=== PATIENT | male | born 1945 | race Caucasian/White ===

== ENCOUNTER → 2016-10-14 | Outpatient (CLI) | payer MEDICARE, BC ==
[~2016-10-14] MED LIST: ALLO300T2 PO; ASPI81TA7 PO; BISAC5TA PO; BISO5TAB5 PO; CLOP75TA2 PO; DOCU10ELUD PO; EPOETIN ALFA IV; FAMC250T3 PO; LOVA20TA2 PO; METF1000 PO; METO12TA PO; METO25TA2 PO; RITU10VLL IV; TYLE325T5 PO; VITA100037 PO; VITA250L PO; VITAD1000T PO; [UNRECOGNIZED DRUG - CODE] IV; [UNRECOGNIZED DRUG - OTHER]
[2016-10-14 13:58] LABS: MEAN CORPUSCULAR HEMOGLOBIN 32.1 pg (27.0-33.0); MEAN CORPUSCULAR HGB CONC 34.6 g/dl (32.0-36.5); MEAN CORPUSCULAR VOLUME 92.7 fl (80.0-96.0); RED CELL DISTRIBUTION WIDTH 14.2 % (11.5-14.5); WHITE BLOOD COUNT 5.4 K/mm3 (4.0-10.0)
[2016-10-14 14:18] LABS: ALBUMIN 3.6 GM/DL (3.2-5.2); ALBUMIN/GLOBULIN RATIO 1.64 (1.00-1.93); BILIRUBIN,TOTAL 0.5 MG/DL (0.2-1.0); CALCIUM LEVEL 8.7 MG/DL (8.8-10.2); CREATININE FOR GFR 1.29 MG/DL (0.70-1.30); GLOMERULAR FILTRATION RATE 58.8 (>49); POTASSIUM SERUM 4.3 MEQ/L (3.5-5.1); TOTAL PROTEIN 5.8 GM/DL (6.4-8.2)
== END ==
LOC: M LAB 13:05
PROVIDERS: ATTEND Family Medicine
DX: E11.9 Type 2 diabetes mellitus without complications (principal); Z12.5 Encounter for screening for malignant neoplasm of prostate; C83.88 Other non-follicular lymphoma, lymph nodes of multiple sites
CPT/HCPCS: 36415; 80053; 83036; 85027; G0103

== ENCOUNTER → 2016-10-17 | Outpatient (REF) | payer MEDICARE, BC | LOC: M SFHCPLAZ 17:30 | PROVIDERS: ATTEND Dermatology | DX: C44.311 Basal cell carcinoma of skin of nose (principal); D04.39 Carcinoma in situ of skin of other parts of face; D04.5 Carcinoma in situ of skin of trunk ==

== ENCOUNTER → 2017-11-10 | Outpatient (REF) | payer MEDICARE, BC | LOC: M SFHCLERA 11-11 11:20 | DX: D04.9 Carcinoma in situ of skin, unspecified (principal) | CPT/HCPCS: 88305 ==

== ENCOUNTER → 2017-12-25 | Outpatient (REF) | payer MEDICARE, BC ==
[2017-12-25 12:20] LABS: HEMATOCRIT 39.4 % (42.0-52.0); HEMOGLOBIN 13.9 g/dl (13.5-17.5); MEAN CORPUSCULAR HEMOGLOBIN 31.4 pg (27.0-33.0); MEAN CORPUSCULAR HGB CONC 35.3 g/dl (32.0-36.5); MEAN CORPUSCULAR VOLUME 89.1 fl (80.0-96.0); PLATELET COUNT, AUTOMATED 102 10^3/uL (150-450); RED BLOOD COUNT 4.42 10^6/uL (4.30-6.10); RED CELL DISTRIBUTION WIDTH 13.2 % (11.5-14.5); WHITE BLOOD COUNT 7.6 10^3/uL (4.0-10.0)
[2017-12-25 12:34] LABS: ALBUMIN 3.7 GM/DL (3.2-5.2); ALBUMIN/GLOBULIN RATIO 1.54 (1.00-1.93); ALKALINE PHOSPHATASE 127 U/L (45-117); ALT/SGPT 25 U/L (12-78); ANION GAP 8 MEQ/L (8-16); AST/SGOT 16 U/L (7-37); BILIRUBIN,TOTAL 0.9 MG/DL (0.2-1.0); BLOOD UREA NITROGEN 19 MG/DL (7-18); CALCIUM LEVEL 8.7 MG/DL (8.8-10.2); CARBON DIOXIDE LEVEL 27 MEQ/L (21-32); CHLORIDE LEVEL 107 MEQ/L (98-107); CHOLESTEROL LEVEL 125 MG/DL (<200); CHOLESTEROL RISK RATIO 3.676 (<5); CREATININE FOR GFR 1.46 MG/DL (0.70-1.30); GLOMERULAR FILTRATION RATE 50.8 (>42); GLUCOSE, FASTING 232 MG/DL (70-100); HDL CHOLESTEROL 34 MG/DL (>40); LDL CHOLESTEROL 43.2 MG/DL (<100); NON-HDL-C 91 MG/DL; PROSTATIC SPECIFIC AG MONITOR 9.88 NG/ML (< 4.0); SODIUM LEVEL 142 MEQ/L (136-145); TOTAL PROTEIN 6.1 GM/DL (6.4-8.2); TRIGLYCERIDES LEVEL 239 MG/DL (<150); URIC ACID 3.8 MG/DL (3.5-7.2)
[2017-12-25 12:50] LABS: MALB URINE SIEMENS 18.3 MG/L; MAU/CREAT RATIO 9.5 MCG/MG (0.0-30.0)
[2017-12-25 13:03] LABS: ESTIMATED AVERAGE GLUCOSE 214 MG/DL (60-110); HEMOGLOBIN A1c 9.1 %
== END ==
LOC: M SFHCADAM 09:17
DX: C83.88 Other non-follicular lymphoma, lymph nodes of multiple sites (principal); E11.9 Type 2 diabetes mellitus without complications; I25.10 Atherosclerotic heart disease of native coronary artery without angina pectoris; E78.4 Other hyperlipidemia; M10.9 Gout, unspecified; R97.20 Elevated prostate specific antigen [PSA]
CPT/HCPCS: 84550

== ENCOUNTER → 2018-01-01 | Outpatient (REF) | payer MEDICARE, BC ==
[2018-01-01 14:48] LABS: IMMUNOGLOBULIN G 409 MG/DL (681-1648); IMMUNOGLOBULIN M 47.8 MG/DL (40-230)
[2018-01-02 14:57] LABS: BETA 2 MICROGLOBULIN 4.6 mg/L (0.6-2.4)
== END ==
LOC: M LAB REF 13:23
DX: C85.99 Non-Hodgkin lymphoma, unspecified, extranodal and solid organ sites (principal)
CPT/HCPCS: 82784

== ENCOUNTER → 2018-01-20 | Outpatient (CLI) | payer MEDICARE, BC | LOC: M PLARAD 12:30 | DX: C85.99 Non-Hodgkin lymphoma, unspecified, extranodal and solid organ sites (principal); Z85.820 Personal history of malignant melanoma of skin | CPT/HCPCS: 78815 ==

== ENCOUNTER → 2018-01-22 | Outpatient (REF) | payer MEDICARE, BC | LOC: M LAB REF 19:39 | DX: C83.00 Small cell B-cell lymphoma, unspecified site (principal) | CPT/HCPCS: 88300 ==

== ENCOUNTER → 2018-10-14 | Outpatient (CLI) | payer MEDICARE, BC ==
[~2018-10-14] MED LIST changes: +ASPI81TA85 PO; -DOCU10ELUD PO; +DOCU5LIQ PO; +METO-346 PO; -METO12TA PO; +METO1TAB87 PO; +OMEP20TA PO
[2018-10-14 10:53] LABS: HEMATOCRIT 40.2 % (42.0-52.0); HEMOGLOBIN 14.1 g/dl (13.5-17.5); MEAN CORPUSCULAR HEMOGLOBIN 32.5 pg (27.0-33.0); MEAN CORPUSCULAR HGB CONC 35.1 g/dl (32.0-36.5); MEAN CORPUSCULAR VOLUME 92.6 fl (80.0-96.0); PLATELET COUNT, AUTOMATED 114 10^3/uL (150-450); RED BLOOD COUNT 4.34 10^6/uL (4.30-6.10); WHITE BLOOD COUNT 9.2 10^3/uL (4.0-10.0)
[2018-10-14 11:22] LABS: ALBUMIN 4.1 GM/DL (3.2-5.2); BILIRUBIN,TOTAL 0.5 MG/DL (0.2-1.0); CALCIUM LEVEL 8.5 MG/DL (8.8-10.2); CHOLESTEROL RISK RATIO 3.81 (<5); CREATININE FOR GFR 1.53 MG/DL (0.70-1.30); FREE T4 1.02 NG/DL (0.76-1.46); MALB URINE SIEMENS 54.4 MG/L; MAU/CREAT RATIO 29.5 MCG/MG (0.0-30.0); POTASSIUM SERUM 4.4 MEQ/L (3.5-5.1); PROSTATIC SPECIFIC AG MONITOR 12.9 NG/ML (< 4.00); THYROID STIMULATING HORMONE 6.07 uIU/ML (0.358-3.740); TOTAL PROTEIN 6.3 GM/DL (6.4-8.2); URIC ACID 4.1 MG/DL (3.5-7.2)
[2018-10-14 11:23] LABS: TOTAL 25(OH) VITAMIN D 54.7 NG/ML (30.0-100.0)
[2018-10-14 11:24] LABS: HEMOGLOBIN A1c 6.6 %
[2018-10-14 11:33] LABS: FOLATE 12.5 NG/ML (>5.4)
== END ==
LOC: M LAB 10:23
PROVIDERS: ATTEND Family Medicine
DX: E11.9 Type 2 diabetes mellitus without complications (principal); M10.9 Gout, unspecified; R53.83 Other fatigue; R97.20 Elevated prostate specific antigen [PSA]

== ENCOUNTER → 2018-11-05 | Outpatient (REF) | payer MEDICARE, BC ==
[~2018-11-05] MED LIST changes: +B-12100010 PO; +METF-877 PO; +ZYLO300T6 PO
[2018-11-05 13:48] LABS: APPEARANCE, URINE CLEAR (CLEAR); BACTERIA, URINE AUTO NEGATIVE (NEGATIVE); BILIRUBIN, URINE AUTO NEGATIVE (NEGATIVE); BLOOD, URINE BLOOD NEGATIVE (NEGATIVE); COLOR, URINE YELLOW (YELLOW); GLUCOSE, URINE (UA) AUTO NEGATIVE (NEGATIVE); KETONE, URINE AUTO NEGATIVE (NEGATIVE); LEUKOCYTE ESTERASE, URINE AUTO NEGATIVE (NEGATIVE); NITRITE, URINE AUTO NEGATIVE (NEGATIVE); PROTEIN, URINE AUTO NEGATIVE (NEGATIVE); RBC, URINE AUTO 3 /HPF (0-3); SPECIFIC GRAVITY URINE AUTO 1.018 (1.002-1.035); SQUAMOUS EPITHELIAL CELL UR AU 0 /HPF (0-6); UROBILINOGEN, URINE AUTO 0.2 mg/dL (0.0-2.0); WBC, URINE AUTO 2 /HPF (0-3)
== END ==
LOC: M SMT 13:04
PROVIDERS: ATTEND Nurse Practitioner Women's Health
DX: R97.20 Elevated prostate specific antigen [PSA] (principal)
CPT/HCPCS: 81001; 87086; G0463

== ENCOUNTER → 2018-11-06 | Outpatient (CLI) | payer MEDICARE, BC ==
--- NOTE | 2018-11-06 08:36 | REP ---
Clinical: Splenomegaly. Technique: Real time michele scale ultrasound examination using curved array transducer. Findings: The spleen is enlarged and measures 14.1 x 7.0 x 13.2 cm (splenic index 1303). A 2.0 x 2.2 x 2.4 cm adjacent splenule is also appreciated. No focal splenic lesions are identified. The left kidney is normal in reniform shape without hydronephrosis and measures 11.3 x 4.4 x 4.8 cm. Suggestions for duplicated collecting system cannot be excluded. Impression: Splenomegaly and adjacent splenule. No focal splenic lesion identified. Electronically Signed by Ga Guillory MD 11/06/2018 08:28 A
== END ==
LOC: M RAD 06:46
PROVIDERS: ATTEND Internal Medicine Medical Oncology
DX: R16.1 Splenomegaly, not elsewhere classified (principal)

== ENCOUNTER → 2018-12-15 | Outpatient (CLI) | payer MEDICARE, BC ==
--- NOTE | 2018-12-15 14:31 | REP ---
TRANSRECTAL PROSTATE ULTRASOUND WITH ULTRASOUND GUIDANCE FOR PROSTATE BIOPSY: Real-time sonographic evaluation of prostate performed utilizing transrectal probe. Size of the gland is 5.0 x 3.1 x 5.4 cm for a total volume of 44.0 mL. Scattered cysts and calcifications are seen. Hypoechoic nodule in the right apex measures 11 x 7 mm. Seminal vesicles appear prominent. Ultrasound guidance was provided for Dr. Eduardo who performed ultrasound guided biopsy of the prostate. Electronically Signed by Huber Lewis MD 12/16/2018 10:38 A
== END ==
LOC: M SMT PRO 08:48
PROVIDERS: ATTEND Urology
DX: C61 Malignant neoplasm of prostate (principal)
CPT/HCPCS: 55700; 76872; 76942; G0416

== ENCOUNTER → 2019-01-14 | Outpatient (CLI) | payer MEDICARE, BC ==
[2019-01-14 10:25] LABS: CALCIUM LEVEL 8.7 MG/DL (8.8-10.2); CREATININE FOR GFR 1.56 MG/DL (0.70-1.30); GLOMERULAR FILTRATION RATE 46.9 (>42)
== END ==
LOC: M LAB 09:27
PROVIDERS: ATTEND Family Medicine
DX: E11.9 Type 2 diabetes mellitus without complications (principal)

== ENCOUNTER → 2019-11-01 | Outpatient (CLI) | payer MEDICARE, BC ==
[~2019-11-01] MED LIST changes: +OMEP-358 PO; -OMEP20TA PO
[2019-11-01 09:33] LABS: HEMATOCRIT 38.9 % (42.0-52.0); HEMOGLOBIN 12.9 g/dl (13.5-17.5); MEAN CORPUSCULAR HEMOGLOBIN 30.7 pg (27.0-33.0); MEAN CORPUSCULAR HGB CONC 33.2 g/dl (32.0-36.5); MEAN CORPUSCULAR VOLUME 92.6 fl (80.0-96.0); PLATELET COUNT, AUTOMATED 127 10^3/uL (150-450)
[2019-11-01 09:36] LABS: WHITE BLOOD COUNT 59.4 10^3/uL (4.0-10.0)
[2019-11-01 10:26] LABS: ALBUMIN 4.3 GM/DL (3.2-5.2); BILIRUBIN,TOTAL 0.8 MG/DL (0.2-1.0); CALCIUM LEVEL 9.6 MG/DL (8.8-10.2); CHOLESTEROL RISK RATIO 5.923 (<5); CREATININE FOR GFR 2.27 MG/DL (0.70-1.30); FREE T4 1.14 NG/DL (0.76-1.46); GLOMERULAR FILTRATION RATE 30.4 (>42); POTASSIUM SERUM 4.4 MEQ/L (3.5-5.1); THYROID STIMULATING HORMONE 3.4 uIU/ML (0.358-3.740); TOTAL PROTEIN 6.9 GM/DL (6.4-8.2)
== END ==
LOC: M LAB 08:55
PROVIDERS: ATTEND Family Medicine
DX: E03.9 Hypothyroidism, unspecified (principal); E53.8 Deficiency of other specified B group vitamins; E11.9 Type 2 diabetes mellitus without complications; I25.10 Atherosclerotic heart disease of native coronary artery without angina pectoris

== ENCOUNTER → 2019-11-02 | Outpatient (CLI) | payer MEDICARE, BC ==
[~2019-11-02] MED LIST changes: +CIPRODEX AS; +GASTROGRAFIN SOLUTION 30ML (Q9963) As Ordered ONE
--- NOTE | 2019-11-02 15:54 | REP ---
CT CHEST WITHOUT IV CONTRAST: CT chest performed without IV contrast. Sagittal and coronal reconstruction images are performed. Comparison made with prior PET/CT performed on 01/20/2018. Both lung show bilateral interstitial fibrotic change, left greater than right. No suspicious pulmonary nodule is seen. Extensive adenopathy is seen with multiple mildly enlarged bilateral axillary lymph nodes present, multiple lymph nodes in the lower neck soft tissues, superior, middle and posterior mediastinum. There are also mildly enlarged hilar lymph nodes. The largest right axillary lymph node measures 2.5 x 1.7 cm. There are multiple adjacent smaller right axillary lymph nodes and all of the lymph nodes are smaller. The largest superior mediastinal lymph node is in the right paratracheal region measuring 1.8 x 1.1 cm. AP window adenopathy is seen with the largest lymph node 1.6 x 1.2 cm. Subcarinal adenopathy measures approximately 2.8 x 1.5 cm. There is adjacent paraesophageal lymphadenopathy, the largest right paraesophageal lymph node measuring approximately 1.7 x 2.6 cm. At about the level of the distal end of the esophagus an enlarged lymph node to the right of the distal thoracic aorta measures 2.9 x 1.8 cm. The heart is normal in size. There is no pleural or pericardial effusion. T here are diffuse degenerative changes of the spine. IMPRESSION: Diffuse lymphadenopathy as discussed above. Electronically Signed by Huber Lewis MD 11/03/2019 04:39 P
--- NOTE | 2019-11-02 16:08 | REP ---
CT ABDOMEN AND PELVIS WITHOUT CONTRAST: CT abdomen and pelvis performed with oral contrast, without IV contrast. Sagittal and coronal reconstruction images are performed. The liver is grossly unremarkable. The spleen is moderately enlarged and has increased in size since the prior PET/CT 01/20/2018. The length of the spleen is approximately 18.2 cm. Adrenal glands are normal. No gross pancreatic mass is seen. The kidneys are grossly unremarkable. There is no hydronephrosis bilaterally. Mild diffuse atherosclerotic calcification is seen of the abdominal aorta without aneurysm. There is significant increased and diffuse abdominal and pelvis lymphadenopathy. Bulky periaortic and aortocaval lymph nodes are present largest are located in the left periaortic region at the level of the upper pole of the left kidney. Approximate measurement at that location of the largest node is 5.4 x 2.9 cm. There is mild retrocrural adenopathy. There is lymphadenopathy in the gastrohepatic ligament, peripancreatic region, splenic hilum, karson hepatis, and there are multiple smaller diffuse mesenteric lymph nodes present. Diffuse bilateral iliac adenopathy is noted extending into the inguinal regions. Multiple gallstones are noted in the gallbladder. No bowel wall thickening is seen. The appendix is normal. Urinary bladder is mildly distended and grossly unremarkable. There are diffuse degenerative changes of the spine. IMPRESSION: Diffuse increased abdominal pelvic adenopathy compared to PET/CT 01/20/2018. There is also increased moderate splenomegaly. Electronically Signed by Huber Lewis MD 11/03/2019 04:39 P
--- NOTE | 2019-11-02 16:14 | REP ---
SOFT-TISSUE CT STUDY OF THE NECK WITHOUT CONTRAST: HISTORY: Renal failure. History of lymphoma. Sweats. Concern for recurrent lymphoma. Comparison CT study is from February 15, 2013. CT FINDINGS: There is shoddy adenopathy in the neck at the thoracic inlet bilaterally as well as in the subclavicular and supraclavicular lymph nodes. No large lymph node is seen. The largest lymph node noted is a left subclavicular node measuring 15 x 18 x 9 mm. There are shoddy axillary lymph nodes noted as well including a left axillary node measuring 17 x 24 x 10 mm. In the neck anterior and posterior cervical shoddy normal-sized lymph nodes are seen fairly numerous. These are more prominent than on the 2013 study. IMPRESSION: There is bilateral supraclavicular, axillary, cervical, and mediastinal adenopathy. No bulky adenopathy is seen but the nodes are quite numerous. Electronically Signed by Andre Bhakta MD 11/02/2019 05:16 P
== END ==
LOC: M RAD 11:08
PROVIDERS: ATTEND Internal Medicine Medical Oncology
DX: D72.829 Elevated white blood cell count, unspecified (principal); Z85.79 Personal history of other malignant neoplasms of lymphoid, hematopoietic and related tissues; N19 Unspecified kidney failure; R61 Generalized hyperhidrosis; R59.0 Localized enlarged lymph nodes
CPT/HCPCS: 70490; 71250; 74176; Q9963

== ENCOUNTER → 2019-11-03 | Outpatient (CLI) | payer MEDICARE, BC ==
[~2019-11-03] MED LIST changes: -CIPRODEX AS; -GASTROGRAFIN SOLUTION 30ML (Q9963) As Ordered ONE
--- NOTE | 2019-11-03 15:52 | REP ---
CT brain: 11/03/2019. Indication: Headache. Lymphoma. Technique: Unenhanced axial CT images of the brain were obtained from skull base to vertex with coronal reconstructions provided. Comparison: No previous head CT imaging is available for direct comparison. Comparison is made to MRI study dated 01/06/2015. Findings: Small right middle cranial fossa/anterior temporal arachnoid cyst is present. There is no acute intracranial hemorrhage or acute cortical infarction. There is no hydrocephalus. No significant fluid is present within the visualized paranasal sinuses/mastoid air cells. No lytic or blastic/erosive calvarial lesions are present. Impression: No acute intracranial process. Small right middle cranial fossa arachnoid cyst. Stable. Electronically Signed by Trip Smith DO 11/03/2019 03:43 P
== END ==
LOC: M RAD 15:15
PROVIDERS: ATTEND Internal Medicine Medical Oncology
DX: C85.90 Non-Hodgkin lymphoma, unspecified, unspecified site (principal)

== ENCOUNTER 2019-11-04 11:29 | Outpatient (CLI) | payer MEDICARE, BC ==
[~2019-11-04] VITALS: Ht 175.3 cm; Wt 83.5 kg
[2019-11-04 11:50] VITALS: BP 145/74
[2019-11-04] MEDS ORDERED: diphenhydrAMINE 50MG CAP PO ONE (12:00)
[2019-11-04] MEDS ORDERED: ACETAMINOPHEN TAB 650MG DOSE (2X325MG) PO ONE (12:00)
[2019-11-04 12:40] VITALS: BP 151/77
[2019-11-04] MEDS ORDERED: IMMUNE GLOBULIN 10% 5 GM in IV 1 EA IV ONE (13:00)
[2019-11-04] MEDS ORDERED: IMMUNE GLOBULIN 10% 20 GM in IV 1 EA IV ONE (13:00)
[2019-11-04] MEDS ORDERED: IMMUNE GLOBULIN 10% 10 GM in IV 1 EA IV ONE (13:00)
[2019-11-04 13:10] VITALS: BP 157/74
[2019-11-04 13:40] VITALS: BP 166/78
[2019-11-04 14:40] VITALS: BP 156/74
[2019-11-04 15:05] VITALS: BP 173/82
[2019-11-17] MEDS ORDERED: CIPRODEX AS (08:10)
[2019-12-01] MEDS ORDERED: TOBR0.3S OD (11:06)
[2019-12-01] MEDS ORDERED: TOBRSUS8 OP (11:07)
== END 2019-11-04 15:05 | disposition home or self-care (01) ==
LOC: M INFU 11:29
PROVIDERS: ATTEND Internal Medicine Medical Oncology
DX: C85.90 Non-Hodgkin lymphoma, unspecified, unspecified site (principal); C88.4 Extranodal marginal zone B-cell lymphoma of mucosa-associated lymphoid tissue [MALT-lymphoma]; D89.0 Polyclonal hypergammaglobulinemia; N17.9 Acute kidney failure, unspecified; I25.10 Atherosclerotic heart disease of native coronary artery without angina pectoris; D80.1 Nonfamilial hypogammaglobulinemia; E86.0 Dehydration
CPT/HCPCS: 96365; 96366; J1459

== ENCOUNTER → 2019-11-05 | Outpatient (REF) | payer MEDICARE, BC ==
[~2019-11-05] MED LIST changes: +CIPRODEX AS
== END ==
LOC: M LAB REF 13:28
PROVIDERS: ATTEND Otolaryngology
DX: H60.8X2 Other otitis externa, left ear (principal)

== ENCOUNTER → 2019-11-09 | Outpatient (CLI) | payer MEDICARE, BC ==
[2019-11-09 12:54] LABS: CALCIUM LEVEL 9.6 MG/DL (8.8-10.2); CREATININE FOR GFR 2.03 MG/DL (0.70-1.30); GLOMERULAR FILTRATION RATE 34.5 (>42); POTASSIUM SERUM 4.7 MEQ/L (3.5-5.1)
== END ==
LOC: M LAB 11:40
PROVIDERS: ATTEND Family Medicine
DX: N17.9 Acute kidney failure, unspecified (principal)

== ENCOUNTER → 2019-11-17 | Outpatient (CLI) | payer MEDICARE, BC ==
[~2019-11-17] MED LIST changes: +ALLO100T PO; -ASPI81TA85 PO; +ASPI81TA86 PO; +ATOR1TAB21 PO; +B-121TAB3 PO; +EXCETAB33 PO; +IMBR1CAP PO; +METF-838 PO; +METO1TAB32 PO; +OMEP-221 PO; +TOBR0.3S OD; +TOBRSUS8 OP; +TRAM50TA2 PO
[2019-11-17 11:10] LABS: CALCIUM LEVEL 8.9 MG/DL (8.8-10.2); CREATININE FOR GFR 1.86 MG/DL (0.70-1.30); GLOMERULAR FILTRATION RATE 38.2 (>42); POTASSIUM SERUM 4.4 MEQ/L (3.5-5.1)
== END ==
LOC: M LAB 09:23
PROVIDERS: ATTEND Family Medicine
DX: M17.9 Osteoarthritis of knee, unspecified (principal)

== ENCOUNTER 2019-11-22 09:42 | Outpatient (CLI) | payer MEDICARE, BC ==
[~2019-11-22] VITALS: Ht 175.3 cm; Wt 80.9 kg
[~2019-11-22 09:42] MED LIST changes: -ALLO100T PO; -ATOR1TAB21 PO; -B-121TAB3 PO; -EXCETAB33 PO; -IMBR1CAP PO; -METF-838 PO; -METO1TAB32 PO; -OMEP-221 PO; -TOBR0.3S OD; -TOBRSUS8 OP; -TRAM50TA2 PO
[2019-11-22 10:00] VITALS: BP 165/87
[2019-11-22] MEDS ORDERED: CEFEPIME HCL 1 GM in D5W MINI-BAG PLUS 50 ML IV ONE (11:00)
[2019-11-22 11:30] VITALS: BP 159/86
[2019-12-01] MEDS ORDERED: TOBR0.3S OD (11:06)
[2019-12-01] MEDS ORDERED: TOBRSUS8 OP (11:07)
[2020-01-13] MEDS ORDERED: ALLO100T PO (08:33)
[2020-01-18] MEDS ORDERED: IMBR1CAP PO (13:10)
== END 2019-11-22 11:30 | disposition home or self-care (01) ==
LOC: M INFU 09:42 → M MSPAV 09:44 → M INFU 11:30
PROVIDERS: ATTEND Otolaryngology
DX: H60.8X2 Other otitis externa, left ear (principal)
CPT/HCPCS: 96365; G0378; J0692

== ENCOUNTER → 2019-11-22 | Outpatient (REF) | payer MEDICARE, BC | LOC: M LAB REF 11:32 | PROVIDERS: ATTEND Otolaryngology | DX: H60.8X2 Other otitis externa, left ear (principal) ==

== ENCOUNTER 2019-11-23 06:40 | Outpatient (CLI) | payer MEDICARE, BC ==
[~2019-11-23] VITALS: Ht 175.3 cm; Wt 80.9 kg
[2019-11-23 06:55] VITALS: BP 172/83
[2019-11-23] MEDS ORDERED: CEFEPIME HCL 1 GM in D5W MINI-BAG PLUS 50 ML IV ONE (07:00)
[2019-11-23] MEDS ORDERED: cefoTEtan DISODIUM 1 GM in D5W MINI-BAG PLUS 50 ML IV ONE (07:00)
[2019-11-23 07:45] VITALS: BP 158/67
[2019-12-01] MEDS ORDERED: TOBR0.3S OD (11:06)
[2019-12-01] MEDS ORDERED: TOBRSUS8 OP (11:07)
[2020-01-13] MEDS ORDERED: ALLO100T PO (08:33)
[2020-01-18] MEDS ORDERED: IMBR1CAP PO (13:10)
== END 2019-11-23 07:45 | disposition home or self-care (01) ==
LOC: M INFU 06:40
PROVIDERS: ATTEND Otolaryngology
DX: H60.8X2 Other otitis externa, left ear (principal)

== ENCOUNTER 2019-11-23 17:07 | Outpatient (CLI) | payer MEDICARE, BC ==
[~2019-11-23] VITALS: Ht 175.3 cm; Wt 80.9 kg
[~2019-11-23 17:07] MED LIST changes: +CEFEPIME 1GM VIAL (MAXIPIME) (J0692 PER 500MG) As Ordered ONE
[2019-11-23] MEDS ORDERED: CEFEPIME HCL 1 GM in D5W MINI-BAG PLUS 50 ML IV ONE (17:15)
[2019-11-23 17:47] VITALS: BP 157/72
[2019-11-23 18:16] VITALS: BP 155/83
[2019-12-01] MEDS ORDERED: TOBR0.3S OD (11:06)
[2019-12-01] MEDS ORDERED: TOBRSUS8 OP (11:07)
[2020-01-13] MEDS ORDERED: ALLO100T PO (08:33)
[2020-01-18] MEDS ORDERED: IMBR1CAP PO (13:10)
== END 2019-11-23 18:20 | disposition home or self-care (01) ==
LOC: M INFU 17:07
PROVIDERS: ATTEND Otolaryngology
DX: H60.8X2 Other otitis externa, left ear (principal)
CPT/HCPCS: 96365; 96366; J0692

== ENCOUNTER 2019-11-24 06:45 | Outpatient (CLI) | payer MEDICARE, BC ==
[~2019-11-24] VITALS: Ht 175.3 cm; Wt 81.8 kg
[~2019-11-24 06:45] MED LIST changes: -CEFEPIME 1GM VIAL (MAXIPIME) (J0692 PER 500MG) As Ordered ONE
[2019-11-24 06:50] VITALS: BP 165/77
[2019-11-24] MEDS ORDERED: CEFEPIME HCL 1 GM in D5W MINI-BAG PLUS 50 ML IV ONE (07:30)
[2019-11-24 08:00] VITALS: BP 147/68
[2019-12-01] MEDS ORDERED: TOBR0.3S OD (11:06)
[2019-12-01] MEDS ORDERED: TOBRSUS8 OP (11:07)
[2020-01-13] MEDS ORDERED: ALLO100T PO (08:33)
[2020-01-18] MEDS ORDERED: IMBR1CAP PO (13:10)
== END 2019-11-24 08:00 | disposition home or self-care (01) ==
LOC: M INFU 06:45
PROVIDERS: ATTEND Otolaryngology
DX: H60.8X2 Other otitis externa, left ear (principal)
CPT/HCPCS: 96365; J0692

== ENCOUNTER 2019-12-27 11:38 | Inpatient (IN) | payer MEDICARE, BC ==
[~2019-12-27 11:38] MED LIST changes: +TOBR0.3S OD; +TOBRSUS8 OP
[2019-12-27] MEDS ORDERED: ASPIRIN 81 MG CHEW TABLET As Ordered ONE (13:08)
[2019-12-27] MEDS ORDERED: MIRALAX *UNIT DOSE* 17GM PACKET As Ordered ONE (22:58)
[2019-12-27] MEDS ORDERED: CYANOCOBALAMIN 500 MCG TAB As Ordered ONE (22:59)
[2019-12-27] MEDS ORDERED: OMEPRAZOLE 20 MG CAP As Ordered ONE (22:59)
[2019-12-27] MEDS ORDERED: DOCUSATE SODIUM 100 MG CAP As Ordered ONE (22:59)
[2019-12-27] MEDS ORDERED: HEPARIN SOD (PORCINE) 5000UNITS/ML 1ML VIAL/SYRINGE As Ordered ONE (22:59)
[2019-12-27] MEDS ORDERED: SIMVASTATIN 20 MG TAB As Ordered ONE (22:59)
[2019-12-28] MEDS ORDERED: HEPARIN SOD (PORCINE) 5000UNITS/ML 1ML VIAL/SYRINGE As Ordered ONE (06:06)
[2019-12-28] MEDS ORDERED: MIRALAX *UNIT DOSE* 17GM PACKET As Ordered ONE (08:11)
[2019-12-28] MEDS ORDERED: DOCUSATE SODIUM 100 MG CAP As Ordered ONE (08:11)
[2019-12-28] MEDS ORDERED: allopurinoL 100 MG TAB As Ordered ONE (08:11)
[2019-12-28] MEDS ORDERED: METOPROLOL SUCC *XL* 25MG TAB (TopROL *XL*) As Ordered ONE (08:13)
[2019-12-28] MEDS ORDERED: ASPIRIN 81 MG ENTERIC TAB As Ordered ONE (08:19)
[2019-12-28] MEDS ORDERED: B-121TAB3 PO (09:58)
[2019-12-28] MEDS ORDERED: EXCETAB33 PO (09:58)
[2019-12-28] MEDS ORDERED: OMEP-221 PO (09:58)
[2019-12-28] MEDS ORDERED: METO1TAB32 PO (09:58)
[2019-12-28] MEDS ORDERED: DEXTROSE 50% 50 ML SYRINGE IV PRN (19:00)
[2019-12-28] MEDS ORDERED: NS 1,000 ML IV SCH (19:00)
[2019-12-28] MEDS ORDERED: ACETAMINOPHEN TAB 650MG DOSE (2X325MG) PO PRN (19:00)
[2019-12-28] MEDS ORDERED: GLUCOSE 4GM CHEW TABLET PO PRN (19:00)
[2019-12-28] MEDS ORDERED: GLUCAGON INJ 1MG VIAL SC PRN (19:00)
[2019-12-28] MEDS ORDERED: SIMVASTATIN 20 MG TAB PO SCH (21:00)
[2019-12-28] MEDS ORDERED: CYANOCOBALAMIN 500 MCG TAB PO SCH (21:00)
[2019-12-28] MEDS ORDERED: HumaLOG INSULIN (NovoLOG) PER UNIT SC SCH (21:00)
[2019-12-28] MEDS ORDERED: OMEPRAZOLE 20 MG CAP PO SCH (21:00)
[2019-12-28] MEDS ORDERED: DOCUSATE SODIUM 100 MG CAP PO SCH (21:00)
[2019-12-28 21:25] LABS: HEMATOCRIT 30.4 % (42.0-52.0); HEMOGLOBIN 9.9 g/dl (13.5-17.5); MEAN CORPUSCULAR HEMOGLOBIN 31.2 pg (27.0-33.0); MEAN CORPUSCULAR HGB CONC 32.6 g/dl (32.0-36.5); MEAN CORPUSCULAR VOLUME 95.9 fl (80.0-96.0); RED BLOOD COUNT 3.17 10^6/uL (4.30-6.10)
[2019-12-28 21:28] LABS: PLATELET COUNT, AUTOMATED 90 10^3/uL (150-450)
[2019-12-28] MEDS ORDERED: HEPARIN SOD (PORCINE) 5000UNITS/ML 1ML VIAL/SYRINGE SQ SCH (22:00)
[2019-12-29] MEDS ORDERED: HumaLOG INSULIN (NovoLOG) PER UNIT SC SCH (07:30)
[2019-12-29] MEDS ORDERED: allopurinoL 100 MG TAB PO SCH (09:00)
[2019-12-29] MEDS ORDERED: MIRALAX *UNIT DOSE* 17GM PACKET PO SCH (09:00)
[2019-12-29] MEDS ORDERED: ASPIRIN 81 MG CHEW TABLET PO SCH (09:00)
[2019-12-29] MEDS ORDERED: METOPROLOL SUCC *XL* 25MG TAB (TopROL *XL*) PO SCH (09:00)
[2020-01-13] MEDS ORDERED: ALLO100T PO (08:33)
[2020-01-18] MEDS ORDERED: IMBR1CAP PO (13:10)
--- NOTE | 2020-01-25 13:24 | ECGEPIP ---
[facility] - ED Test Date: 2019-12-27 Pat Name: RANDEE RICK Department: Room: [place] [address] Gender: Male Civil Structural Designer: : 1945 Requested By: Rosa Maria Jarquin Order Number: [id number] Reading MD: Rosa Maria Jarquin Measurements Intervals [place] Rate: 72 P: 21 NH: 146 QRS: -24 QRSD: 92 T: 21 QT: 409 QTc: 450 Interpretive Statements SINUS RHYTHM BORDERLINE LEFT AXIS DEVIATION BORDERLINE ECG SEE SCANNED DOWNTIME REPORT
[2020-02-08 11:10] LABS: INR 0.98; PROTHROMBIN TIME 13.2 SECONDS (12.5-14.3)
[2020-02-10 11:56] LABS: BASO # 0.2 10^3/uL (0.0-0.2); BASO % 0.1 % (0.0-1.0); EOS # 1.4 10^3/uL (0.0-0.5); EOS % 1.1 % (0.0-3.0); HEMATOCRIT 38.3 % (42.0-52.0); HEMOGLOBIN 11.8 g/dl (13.5-17.5); LYMPH # 116.1 10^3/uL (1.5-5.0); LYMPH % 90.1 % (24.0-44.0); MEAN CORPUSCULAR HEMOGLOBIN 30.2 pg (27.0-33.0); MEAN CORPUSCULAR HGB CONC 30.8 g/dl (32.0-36.5); MONO # 5.4 10^3/uL (0.0-0.8); MONO % 4.2 % (0.0-5.0); NEUTROPHILS # 5.4 10^3/uL (1.5-8.5); NEUTROPHILS % 4.1 % (36.0-66.0); PLATELET COUNT, AUTOMATED 137 10^3/uL (150-450); RED BLOOD COUNT 3.91 10^6/uL (4.30-6.10); WHITE BLOOD COUNT 128.8 10^3/uL (4.0-10.0)
[2020-03-19 16:16] LABS: ALBUMIN 4.2 GM/DL (3.2-5.2); ALT/SGPT 13 U/L (12-78); BILIRUBIN,DIRECT 0.2 MG/DL (0.0-0.2); BLOOD UREA NITROGEN 30 MG/DL (7-18); CALCIUM LEVEL 9.2 MG/DL (8.8-10.2); CARBON DIOXIDE LEVEL 27 MEQ/L (21-32); CHLORIDE LEVEL 106 MEQ/L (98-107); CK-MB VALUE MASS < 1.0 NG/ML (<3.6); CPK CREATINE PHOSPHOKINASE 16 U/L (39-308); CREATININE FOR GFR 2.17 MG/DL (0.70-1.30); GLUCOSE, FASTING 174 MG/DL (70-100); LIPASE 180 U/L (73-393); MB/CK RELATIVE INDEX 6.25 (< OR =4); POTASSIUM SERUM 4.9 MEQ/L (3.5-5.1); SODIUM LEVEL 139 MEQ/L (136-145); TOTAL PROTEIN 6.8 GM/DL (6.4-8.2); TROPONIN I < 0.02 NG/ML (< 0.10); URIC ACID 6.3 MG/DL (3.5-7.2)
== END 2019-12-28 12:30 | disposition home or self-care (01) | DRG 683 ==
LOC: M ED 11:38 → M MSPAV 11:39
PROVIDERS: ADMIT Internal Medicine; ATTEND Internal Medicine
DX: N17.9 Acute kidney failure, unspecified (principal); C85.90 Non-Hodgkin lymphoma, unspecified, unspecified site; K59.00 Constipation, unspecified; E11.9 Type 2 diabetes mellitus without complications; I25.10 Atherosclerotic heart disease of native coronary artery without angina pectoris; Z95.2 Presence of prosthetic heart valve; Z79.82 Long term (current) use of aspirin; Z79.899 Other long term (current) drug therapy

== ENCOUNTER → 2020-01-04 | Outpatient (CLI) | payer MEDICARE, BC ==
[~2020-01-04] MED LIST changes: +ALLO100T PO; +ATOR1TAB21 PO; +B-121TAB3 PO; +EXCETAB33 PO; +IMBR1CAP PO; +METF-838 PO; +METO1TAB32 PO; +OMEP-221 PO; +TRAM50TA2 PO
--- NOTE | 2020-02-04 09:50 | REP ---
LUMBOSACRAL SPINE SERIES CLINICAL: Lower back pain. TECHNIQUE: AP, lateral, bilateral oblique, and coned views of the lumbosacral spine. FINDINGS: Mild age-related changes through the lumbar spine include endplate sclerosis with very subtle marginal spurring and minimal disc space narrowing, primarily noted L4-5. There is chronic grade 1 anterolisthesis at the L4-5 level as well, measuring approximately 2.5 mm. No acute fracture/compression injury or acute subluxation. IMPRESSION: Mild age-related degenerative changes through the lumbar spine as described above. MTDD
== END ==
LOC: M ADAMS 11:50
PROVIDERS: ATTEND Physician Assistant Medical
DX: M51.36 Other intervertebral disc degeneration, lumbar region (principal); M54.5 Low back pain
CPT/HCPCS: 72110; G0463

== ENCOUNTER → 2020-01-12 | Outpatient (CLI) | payer MEDICARE, BC ==
[2020-01-12 15:23] LABS: CORTISOL AM 13.5 UG/DL (4.3-22.4); FOLLICLE STIMULATING HORMONE 29.3 mIU/mL (1.4-18.1); FREE T4 1.09 NG/DL (0.76-1.46); THYROID STIMULATING HORMONE 3.5 uIU/ML (0.358-3.740)
== END ==
LOC: M PLALAB 11:36
PROVIDERS: ATTEND Internal Medicine Endocrinology, Diabetes & Metabolism
DX: D49.7 Neoplasm of unspecified behavior of endocrine glands and other parts of nervous system (principal)

== ENCOUNTER → 2020-01-27 | Outpatient (REF) | payer MEDICARE, BC ==
[2020-01-27 09:45] LABS: CALCIUM LEVEL 9.5 MG/DL (8.8-10.2); CREATININE FOR GFR 2.18 MG/DL (0.70-1.30); GLOMERULAR FILTRATION RATE 31.8 (>42); POTASSIUM SERUM 3.6 MEQ/L (3.5-5.1)
[2020-01-27 10:31] LABS: HEMOGLOBIN A1c 6.7 %
== END ==
LOC: M LAB REF 09:20
PROVIDERS: ATTEND Family Medicine
DX: E11.9 Type 2 diabetes mellitus without complications (principal)

== ENCOUNTER 2020-01-28 11:36 | Observation (INO) | payer MEDICARE, BC ==
[~2020-01-28 11:36] MED LIST changes: -ATOR1TAB21 PO; -METF-838 PO; -TRAM50TA2 PO
[2020-01-28] MEDS ORDERED: NS 1,000 ML IV SCH (12:00)
--- NOTE | 2020-01-28 12:24 | REPVR ---
PROCEDURE INFORMATION: Exam: CT Head Without Contrast Exam date and time: 01/28/2020 11:45 AM Age: 74 years old Clinical indication: Altered mental status/memory loss TECHNIQUE: Imaging protocol: Computed tomography of the head without contrast. Radiation optimization: All CT scans at this facility use at least one of these dose optimization techniques: automated exposure control; mA and/or kV adjustment per patient size (includes targeted exams where dose is matched to clinical indication); or iterative reconstruction. COMPARISON: CT Head without contrast 11/03/2019 3:31 PM FINDINGS: Brain: There is no acute intracranial hemorrhage or mass effect. Mild diffuse volume loss is within the range of normal for patient age. There are small vessel ischemic changes within the periventricular and subcortical white matter, but the normal michele/white matter delineation is maintained. Ventricles: Prominence of the ventricular system is commensurate with volume loss. Bones/joints: Unremarkable. No acute fracture. Paranasal sinuses: Visualized sinuses are unremarkable. No fluid levels. Mastoid air cells: Visualized mastoid air cells are well aerated. Soft tissues: Unremarkable. IMPRESSION: No acute intracranial hemorrhage or edema. Electronically signed by: Lilibeth Palencia On 01/28/2020 12:24:25 PM
--- NOTE | 2020-01-28 12:25 | REPVR ---
PROCEDURE INFORMATION: Exam: XR Chest, 1 View Exam date and time: 01/28/2020 11:59 AM Age: 74 years old Clinical indication: Other: Altered mental status TECHNIQUE: Imaging protocol: XR of the chest Views: 1 view. COMPARISON: No relevant prior studies available. FINDINGS: Lungs: Unremarkable. No consolidation. Pleural space: Unremarkable. No pleural effusion. No pneumothorax. Heart/Mediastinum: There is mild cardiomegaly. Bones/joints: Unremarkable. IMPRESSION: No acute findings. Electronically signed by: Lilibeth Palencia On 01/28/2020 12:24:55 PM
[2020-01-28] MEDS ORDERED: ISOVUE-370 76% 100ML VIAL As Ordered ONE (12:52)
[2020-01-28 13:04] LABS: VENOUS BASE EXCESS -8.4 (-2.0-2.0); VENOUS HCO3 17.5 MEQ/L (23.0-27.0); VENOUS O2 SATURATION 89.2 % (60.0-80.0); VENOUS PARTIAL PRESSURE CO2 37.2 mmHg (38.0-50.0); VENOUS STANDARD HCO3 17.5 MEQ/L; VENOUS TOTAL CO2 18.6 MEQ/L (24.0-28.0)
[2020-01-28] MEDS ORDERED: TRAM50TA2 PO (13:04)
[2020-01-28 13:10] LABS: HEMATOCRIT 30.7 % (42.0-52.0); HEMOGLOBIN 9.5 g/dl (13.5-17.5); MEAN CORPUSCULAR HEMOGLOBIN 29.7 pg (27.0-33.0); MEAN CORPUSCULAR HGB CONC 30.9 g/dl (32.0-36.5); MEAN CORPUSCULAR VOLUME 95.9 fl (80.0-96.0); PLATELET COUNT, AUTOMATED 113 10^3/uL (150-450)
[2020-01-28 13:21] LABS: WHITE BLOOD COUNT 78.5 10^3/uL (4.0-10.0)
[2020-01-28 13:49] LABS: ALBUMIN 3.4 GM/DL (3.2-5.2); BILIRUBIN,DIRECT 0.5 MG/DL (0.0-0.2); BILIRUBIN,TOTAL 0.9 MG/DL (0.2-1.0); CALCIUM LEVEL 8.7 MG/DL (8.8-10.2); CK-MB VALUE MASS 1.2 NG/ML (<3.6); CREATININE FOR GFR 1.99 MG/DL (0.70-1.30); GLOMERULAR FILTRATION RATE 35.3 (>42); MB/CK RELATIVE INDEX 5.22 (< OR =4); POTASSIUM SERUM 4.7 MEQ/L (3.5-5.1); THYROID STIMULATING HORMONE 0.652 uIU/ML (0.358-3.740); TROPONIN I 0.1 NG/ML (< 0.10)
[2020-01-28 14:03] LABS: ATYPICAL LYMPH 6 % (0-5); LYMPHOCYTES 87 % (16-44); NEUTROPHILS 7 % (28-66)
[2020-01-28 14:16] LABS: PLATELET ESTIMATE DECREASED (NORMAL)
[2020-01-28] MEDS ORDERED: METF-838 PO (15:14)
[2020-01-28] MEDS ORDERED: ACETAMINOPHEN TAB 650MG DOSE (2X325MG) PO PRN (16:00)
--- NOTE | 2020-01-28 16:11 | HPEPDOC ---
General Date of Admission Jan 28, 2020 at 11:37 Date of Service: Jan 28, 2020 Chief Complaint The patient is a 74-year-old male admitted with a reason for visit of Altered Mental Status. Source: Patient Exam Limitations: No limitations Timing/Duration: 1-3 hours, 4-6 hours Severity: Moderate History of Present Illness Patient 74 years old male with past medical history of CLL, NHL marginal zone stage IV, psoriasis, metabolic syndrome presented to the hospital with altered mental status. Patient developed acute onset of severe rigors, dyspnea, and hypoxemia during infusion of Rituximab on January 28, 2020. He reports having previously received Rituximab without adverse reactions. He was treated by c essation of Rituximab infusion, and administration of Solumedol 125 mg IV, together with Meperidine 25 mg IV. He continued to have rigors and dyspnea, and was therefore transported to the Emergency Department. In ER patient was found to have bilateral leg weakness, altered mental status. CT head was done and did not show acute bleeding or stroke. When I saw patient he was able to communicate with me, neurological deficits resolved Home Medications Scheduled Allopurinol (Allopurinol) 100 Mg Tablet, 300 MG PO DAILY, (Reported) Aspirin (Aspir 81) 81 Mg Tab, 81 MG PO DAILY, (Reported) Cyanocobalamin (Vitamin B-12) (B-12) 500 Mcg Tablet, 500 MCG PO QHS, (Reported) Ibrutinib (Imbruvica) 140 Mg Capsule, 2 CAP PO DAILY, (Reported) Lovastatin (Lovastatin) 20 Mg Tablet, 20 MG PO QHS, (Reported) Metformin HCl (Metformin HCl ER) 500 Mg Tab.er.24h, 1,000 MG PO BID, (Reported) Metoprolol Succinate (Metoprolol Succinate) 25 Mg Tab.er.24h, 25 MG PO DAILY, (Reported) Omeprazole (Omeprazole) 40 Mg Capsule.dr, 40 MG PO QHS, (Reported) Scheduled PRN Aspirin/Acetaminophen/Caffeine (Excedrin Migraine Caplet) 1 Each Tablet, 2 TAB PO BID PRN for PAIN, (Reported) Allergies Coded Allergies: levofloxacin (Verified Adverse Reaction, Mild, VOMITTING, 12/28/19) Past Medical History Medical History CAD-- + NST 01/09/12--S/P STOUT CABG X1 TO LAD, POSTOP COMPLICATED BY AT FIB AND RT PLEURAL EFFUSION (HAD THORACENTESIS FOR 800 ML); HAD CATH 01/26, RECEIVED VANESSA TO RCA DM 2 NHL MARGINAL ZONE STAGE IV DR. VIDAL (IN REMISSION WITH NEGATIVE THORACIC NODE BIOPSY 02/1012) KYUNG PER NPSG 12/14 DID NOT TOLERATE CPAP HYPERLIPIDEMIA PSORIATIC ARTHRITIS METABOLIC SYNDROME GOUT ALLERGIC RHINITIS HEPATITIS SECONDARY TO MONO 12/11 DDD/ARTHRITIS C-SPINE MRSA + SKIN INFECTIONS (COMMUNITY AQUIRED) BONE MARROW BIOSPY ON 04/15/2008 (DR.DAY THOMPSON) MILD HTN NEUROPATHY FEET (FROM CHEMO) SCCA LOWER LIP, TX IN ROCH; BCCA NOSE; MELANOMA LEFT UPPER ARM-FOLLOWED BY DERM IN [place] B12 DEFIC (PROB FROM METFORMIN) 10/28; RESPONDED TO ORAL TX 01/28 PROSTATE CANCER 12/28--CICI 3+4, HAD RADIATION TX X 39 SESSIONS IN HI HYPOGAMMAGLOBULOINEMIA--IVIG FOR SEVERE INFECTIONS (LAST 11/28) Surgical History SEPTOPLASTY 2007 COLONOSCOPY 01/18/2010 2009 BIOPSY OF LYMPH NODES IN GROIN 2007 NHL MARGINAL ZON B CELL LYMPHOMA (RECEIVED CHEMO THERAPY) OVER 8 MONTH [address]UT IN PLACE FOR CHEMOTHERAPY 11/2011 CAD-- + NST 01/09/12--S/P STOUT CABG X1 TO LAD, POSTOP COMPLICATED BY AT FIB AND RT PLEURAL EFFUSION (HAD THORACENTESIS FOR 800 ML); HAD CATH 01/26, RECEIVED VANESSA TO RCA 01/[address] RAMIREZ 08/22 CATARACTS X 2 2014 MYRINGOTOMY TUBE, LEFT EAR 11/14/14 DR. DUBON SKIN CANCER EXCISION WITH SKIN GRAFT 07/2015 MOHS- DR MOODY- RIGHT LOWER LIP 01/2016 MM EXCISION- DR TABOR- [place] 05/2017 TRUS BIOPSY PROSTATE 12/15/2018 COLONSCOPY IN [place]--ADENOMATOUS POLYP 03/30 Family History FATHER: LEWY BODY DEMENTIA SIBLINGS: SISTER DM, CAD 5DAUGHTER(S) - HEALTHY. NO KNOW UROLOLOGICAL ISSUES IN FAM. Social History * Smoker: Denies Alcohol: Denies Drugs: denies A-FIB/CHADSVASC A-FIB History Current/History of A-Fib/PAF?: No Current PO Anticoag Therapy: No Review of Systems Constitutional: Reports: Chills; Denies: Fever Eyes: Denies: Pain ENT: Denies: Head Aches Skin: Reports: Rash Pulmonary: Denies: Dyspnea Cardiovascular: Denies: Chest Pain Gastrointestinal: Denies: Nausea, Vomiting Genitourinary: Denies: Dysuria Hematologic: Denies: Bruising Endocrine: Denies: Polydipsia, Polyphagia Musculoskeletal: Denies: Neck Pain Neurological: Denies: Weakness Psych: Reports: Mood Normal Physical Examination General Exam: Positive: Alert, Cooperative Eye Exam: Positive: PERRLA ENT Exam: Positive: Atraumatic Neck Exam: Positive: Supple; Negative: JVD Chest Exam: Positive: Clear to auscultation Heart Exam: Positive: Rate Normal Telemetry: Positive: No significant arrhythmia Abdomen Exam: Positive: Normal bowel sounds Extremity Exam: Negative: Clubbing, Cyanosis Skin Exam: Positive: Nl turgor and temperature Neuro Exam: Positive: Strength at 5/5 X4 ext, Cranial Nerves 3-12 NL Psych Exam: Positive: Mental status NL Vital Signs Vital Signs Date Time Temp Pulse Resp B/P (MAP) Pulse Ox O2 Delivery O2 Flow Rate FiO2 01/28/20 13:30 16 157/76 (103) 98 01/28/20 13:21 92 01/28/20 11:50 98.4 01/28/20 11:40 Room Air Laboratory Data Labs 24H Laboratory Tests 2 01/28/20 12:44: POC Glucose (Misc Panel) 143H, POC Sodium (Misc Panel) 135L, POC Potassium (Misc Panel) 4.8, POC Chloride (Misc Panel) 102, POC Total CO2 (Misc Panel) 18.0L, POC Blood Urea Nitrogen (Misc Panel 25, POC Ionized Calcium (Misc Panel) 4.9, POC Creatinine (Misc Panel) 1.9H, POC Hematocrit (Misc Panel) 29.0L 01/28/20 12:50: Blood Gas Bicarbonate Standard 17.5, Venous Blood pH 7.290L, Venous Blood Partial Pressure CO2 37.2L, Venous Blood Partial Pressure O2 62.0H, Venous Blood Total Carbon Dioxide 18.6L, Venous Blood HCO3 17.5L, Venous Blood Oxygen Saturation 89.2H, Venous Blood Base Excess -8.4L, Anion Gap 10, Glomerular Filtration Rate 35.3L, Osmolality 285, Calcium Level 8.7L, Total Bilirubin 0.9, Direct Bilirubin 0.5H, Aspartate Amino Transf (AST/SGOT) 16, Alanine Aminotransferase (ALT/SGPT) 16, Alkaline Phosphatase 324H, Total Creatine Kinase 23L, Creatine Kinase MB 1.2, Creatine Kinase MB Relative Index 5.22H, Troponin I 0.10, Total Protein 6.0L, Albumin 3.4, Albumin/Globulin Ratio 1.3, Thyroid Stimulating Hormone (TSH) 0.652 01/28/20 12:51: Neutrophils (%) (Auto) , Nucleated Red Blood Cells % (auto) 0.0, Neutrophils 7L, Lymphocytes (Manual) 87H, Atypical Lymphocytes 6H, Platelet Estimate DECREASED, Urine Color YELLOW, Urine Appearance CLEAR, Urine pH 5.0, Urine Specific [place] 1.014, Urine Protein NEGATIVE, Urine Glucose (UA) NEGATIVE, Urine Ketones NEGATIVE, Urine Blood NEGATIVE, Urine Nitrite NEGATIVE, Urine Bilirubin NEGATIVE, Urine Urobilinogen 0.2, Urine Leukocyte Esterase NEGATIVE, Urine WBC (Auto) 0, Urine RBC (Auto) 2, Urine Hyaline Casts (Auto) 0, Urine Bacteria (Auto) NEGATIVE, Urine Squamous Epithelial Cells 0, Urine Mucus (Auto) SMALL, Urine Sperm (Auto) , Lactic Acid Level 3.1*H, Ammonia 23 CBC/BMP Laboratory Tests 01/28/20 12:50 01/28/20 12:51 Microbiology Microbiology 01/28/20 Blood Culture, Received Pending Assessment/Plan Patient 74 years old male with past medical history of CLL, NHL marginal zone stage IV, psoriasis, metabolic syndrome presented to the hospital with altered mental status. Patient developed acute onset of severe rigors, dyspnea, and hypoxemia during infusion of Rituximab on January 28, 2020. He reports having previously received Rituximab without adverse reactions. He was treated by cessation of Rituximab infusion, and administration of Solumedol 125 mg IV, together with Meperidine 25 mg IV. He continued to have rigors and dyspnea, and was therefore transported to the Emergency Department. In ER patient was found to have bilateral leg weakness, altered mental status. CT head was done and did not show acute bleeding or stroke. When I saw patient he was able to communicate with me, neurological deficits resolved Problems (1) CVA (cerebral vascular accident) Status: Acute Problem Text: MRI showed Punctate focus of restricted diffusion at the junction of the left cerebral peduncle and left thalamus, concerning for tiny acute infarct. I talked to Dr Pickens from [facility], he initially consulted patient in the emergency room. He was not sure that patient had a stroke , he recommended MRI and postpone thrombolysis till MRI result. When we received MRI result patient was out of the neurological window for thrombolysis. 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
[2020-01-28] MEDS: NS 1,000 ML IV SCH ×2 (16:15→21:51)
[2020-01-28] MEDS ORDERED: EXCEDRIN MIGRAINE TABLET PO PRN (16:15)
[2020-01-28] MEDS ORDERED: GLUCOSE 4GM CHEW TABLET PO PRN (16:15)
[2020-01-28] MEDS ORDERED: DEXTROSE 50% 50 ML SYRINGE IV PRN (16:15)
[2020-01-28] MEDS ORDERED: GLUCAGON INJ 1MG VIAL SC PRN (16:15)
--- NOTE | 2020-01-28 16:30 | REPVR ---
PROCEDURE INFORMATION: Exam: MR Head Without Contrast Exam date and time: 01/28/2020 3:04 PM Age: 74 years old Clinical indication: Speech disturbance; Aphasia after reaction to chemo medication; Additional info: CVA TECHNIQUE: Imaging protocol: MR of the head without contrast. COMPARISON: CT Head without contrast 01/28/2020 11:49 AM FINDINGS: Brain: Punctate focus of restricted diffusion at the junction of the left cerebral peduncle and left thalamus. Few scattered nonspecific T2/FLAIR hyperintensities of the periventricular and deep subcortical white matter, most likely secondary to chronic small vessel ischemic change. No intracranial hemorrhage or extra-axial fluid collection. No evidence of mass effect or midline shift. No restricted diffusion to suggest acute infarct. Ventricles: Mild prominence of the ventricles and sulci, likely attributed to parenchymal volume loss. Bones/joints: Unremarkable. Sinuses: Unremarkable. Mastoid air cells: No mastoid effusion. Orbits: Unremarkable. Soft tissues: Unremarkable. IMPRESSION: 1. Punctate focus of restricted diffusion at the junction of the left cerebral peduncle and left thalamus, concerning for tiny acute infarct. 2. Other chronic findings, as above. Electronically signed by: Chris Guevara On 01/28/2020 16:29:53 PM
--- NOTE | 2020-01-28 16:36 | REPVR ---
PROCEDURE INFORMATION: Exam: MR Angiogram Head Without Contrast, Arteries Exam date and time: 01/28/2020 3:04 PM Age: 74 years old Clinical indication: Speech disturbance; Patient HX: Aphasia after reaction to chemo medication; Additional info: CVA TECHNIQUE: Imaging protocol: MR angiogram head without contrast. Exam focused on the arteries. 3D rendering (Not supervised by radiologist): MIP and/or 3D reconstructed images were created by the technologist. COMPARISON: CT Head without contrast 01/28/2020 11:49 AM FINDINGS: ANTERIOR CIRCULATION: Right internal carotid artery: Intracranial segment is patent with no significant stenosis. No aneurysm. Right middle cerebral artery: No occlusion or significant stenosis. No aneurysm. Right anterior cerebral artery: No occlusion or significant stenosis. No aneurysm. Left internal carotid artery: Intracranial segment is patent with no significant stenosis. No aneurysm. Left middle cerebral artery: No occlusion or significant stenosis. No aneurysm. Left anterior cerebral artery: No occlusion or significant stenosis. No aneurysm. POSTERIOR CIRCULATION: Right vertebral artery: No occlusion or significant stenosis. No aneurysm. Left vertebral artery: No occlusion or significant stenosis. No aneurysm. Basilar artery: No occlusion or significant stenosis. No aneurysm. Right posterior cerebral artery: No occlusion or significant stenosis. No aneurysm. Left posterior cerebral artery: No occlusion or significant stenosis. No aneurysm. IMPRESSION: No MRA evidence of intracranial arterial occlusion or significant stenosis. Electronically signed by: Chris Guevara On 01/28/2020 16:36:16 PM
[2020-01-28] MEDS: HumaLOG INSULIN (NovoLOG) PER UNIT SC SCH (17:30)
[2020-01-28] MEDS ORDERED: ASPIRIN 325 MG TAB PO ONE (17:30)
[2020-01-28] MEDS ORDERED: ATORVASTATIN 20 MG TAB PO SCH (18:00)
[2020-01-28] MEDS: HEPARIN SOD (PORCINE) 5000UNITS/ML 1ML VIAL/SYRINGE SC SCH (20:19)
[2020-01-28] MEDS ORDERED: HumaLOG INSULIN (NovoLOG) PER UNIT SC SCH (21:00)
[2020-01-28] MEDS ORDERED: SIMVASTATIN 20 MG TAB PO SCH (21:00)
[2020-01-28] MEDS ORDERED: CYANOCOBALAMIN 500 MCG TAB PO SCH (21:00)
[2020-01-28 22:00] VITALS: BP 136/69
[2020-01-29] MEDS: NS 1,000 ML IV SCH ×2 (04:37→12:45)
[2020-01-29 06:00] VITALS: BP 134/66
[2020-01-29 06:56] LABS: HEMATOCRIT 26.4 % (42.0-52.0); HEMOGLOBIN 8.1 g/dl (13.5-17.5); MEAN CORPUSCULAR HEMOGLOBIN 29.8 pg (27.0-33.0); MEAN CORPUSCULAR HGB CONC 30.7 g/dl (32.0-36.5); MEAN CORPUSCULAR VOLUME 97.1 fl (80.0-96.0); RED BLOOD COUNT 2.72 10^6/uL (4.30-6.10)
[2020-01-29 07:03] LABS: PLATELET COUNT, AUTOMATED 94 10^3/uL (150-450)
[2020-01-29 07:04] LABS: WHITE BLOOD COUNT 77.9 10^3/uL (4.0-10.0)
[2020-01-29 07:19] LABS: CHOLESTEROL RISK RATIO 2.714 (<5); CREATININE FOR GFR 1.91 MG/DL (0.70-1.30); GLOMERULAR FILTRATION RATE 37.1 (>42); MAGNESIUM LEVEL 1.8 MG/DL (1.8-2.4); POTASSIUM SERUM 5.1 MEQ/L (3.5-5.1)
[2020-01-29] MEDS: HumaLOG INSULIN (NovoLOG) PER UNIT SC SCH ×2 (07:30→12:00)
[2020-01-29] MEDS ORDERED: allopurinoL 300 MG TAB PO SCH (09:00)
[2020-01-29] MEDS ORDERED: METOPROLOL SUCC *XL* 25MG TAB (TopROL *XL*) PO SCH (09:00)
[2020-01-29] MEDS ORDERED: CLOPIDOGREL 75 MG TAB PO SCH (09:00)
[2020-01-29] MEDS ORDERED: FLUBLOK(EGG FREE)(QUAD)INFLUENZA VACC 0.5ML SYRINGE 18YRS & OLDER IM ONE (09:00)
[2020-01-29] MEDS: HEPARIN SOD (PORCINE) 5000UNITS/ML 1ML VIAL/SYRINGE SC SCH (09:00)
[2020-01-29] MEDS ORDERED: OMEPRAZOLE 20 MG CAP PO SCH (09:00)
[2020-01-29] MEDS ORDERED: ASPIRIN 81 MG ENTERIC TAB PO SCH (09:00)
[2020-01-29 09:04] VITALS: BP 134/66
--- NOTE | 2020-01-29 11:59 | ECGEPIP ---
[facility] - ED Test Date: 2020-01-28 Pat Name: RANDEE RICK Department: Room: - Gender: Male Radio Repairer: : 1945 Requested By: Rosa Maria Jarquin Order Number: [id number] Reading MD: Isma Sandhu Measurements Intervals [place] Rate: 96 P: 22 ND: 151 QRS: -30 QRSD: 93 T: 14 QT: 381 QTc: 483 Interpretive Statements SINUS RHYTHM BORDERLINE LEFT AXIS DEVIATION NONSPECIFIC T WAVE ABNORMALITIES SIMILAR TO 12/27/19 Electronically Signed on 01-29-2020 11:59:16 EDT by Isma Sandhu
--- NOTE | 2020-01-29 13:35 | IPNPDOC ---
Text Note Date of Service The patient was seen on 01/29/20. NOTE Subjective: No any acute overnight. Patient alert, awake, oriented Objective: GENERAL APPEARANCE: NAD HEENT: no scleral icterus, no JVD, EOMI CARDIOVASCULAR: S1S2 LUNGS: CTA ABDOMEN: soft & not tender w palpitation MUSCULOSKELETAL: no cyanosis, no swelling INTEGUMENT: no generalized pallor NEUROLOGICAL: cranial nerve function from 2-12 intact intact, follows commands, speech not dysarthric Assessment/Plan Patient 74 years old male with past medical history of CLL, NHL marginal zone stage IV, psoriasis, metabolic syndrome presented to the hospital with altered mental status. Patient developed acute onset of severe rigors, dyspnea, and hypoxemia during infusion of Rituximab on January 28, 2020. He reports having previously received Rituximab without adverse reactions. He was treated by cessation of Rituximab infusion, and administration of Solumedol 125 mg IV, together with Meperidine 25 mg IV. He continued to have rigors and dyspnea, and was therefore transported to the Emergency Department. In ER patient was found to have bilateral leg weakness, altered mental status. CT head was done and did not show acute bleeding or stroke. When I saw patient he was able to communicate with me, neurological deficits resolved Problems (1) CVA (cerebral vascular accident) Status: Acute Problem Text: MRI showed Punctate focus of restricted diffusion at the junction of the left cerebral peduncle and left thalamus, concerning for tiny acute infarct. I talked to Dr Pickens from [facility], he initially consulted patient in the emergency room. He was not sure that patient had a stroke , he recommended MRI and postpone thrombolysis till MRI result. When we received MRI result patient was out of the neurological window for thrombolysis. Dr Pickens recommended Plavix, TTE with bubble study, statin, carotid ultrasound. 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
[2020-01-29] MEDS ORDERED: CLOP75TA2 PO (14:02)
[2020-01-29] MEDS ORDERED: ATOR1TAB21 PO (14:02)
--- NOTE | 2020-01-29 14:12 | DS.PDOC ---
Discharge Summary General Date of Admission Jan 28, 2020 at 11:37 Date of Discharge 01/29/20 Discharge Summary PROCEDURES PERFORMED DURING STAY: [None]. 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 HISTORY OF PRESENT ILLNESS: Patient 74 years old male with past medical history of CLL, NHL marginal zone stage IV, psoriasis, metabolic syndrome presented to the hospital with altered mental status. Patient developed acute onset of severe rigors, dyspnea, and hypoxemia during infusion of Rituximab on January 28, 2020. He reports having previously received Rituximab without adverse reactions. He was treated by cessation of Rituximab infusion, and administration of Solumedol 125 mg IV, together with Meperidine 25 mg IV. He continued to have rigors and dyspnea, and was therefore transported to the Emergency Department. In ER patient was found to have bilateral leg weakness, altered mental status. CT head was done and did not show acute bleeding or stroke. When I saw patient he was able to communicate with me, neurological deficits resolved HOSPITAL COURSE: During hospital stay following issue addressed (1) CVA (cerebral vascular accident) MRI showed Punctate focus of restricted diffusion at the junction of the left cerebral peduncle and left thalamus, concerning for tiny acute infarct. I talked to Dr Pickens from [facility], he initially consulted patient in the emergency room. He was not sure that patient had a stroke , he recommended MRI and postpone thrombolysis till MRI result. When we received MRI result patient was out of the neurological window for thrombolysis. Dr Pickens recommended Plavix, TTE with bubble study, statin, carotid ultrasound. Tests report pending PT/OT Dr. 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 ALLERGIES: Please see below. PHYSICAL EXAMINATION ON DISCHARGE: VITAL SIGNS: Please see below. GENERAL APPEARANCE: NAD HEENT: no scleral icterus, no JVD, EOMI CARDIOVASCULAR: S1S2 LUNGS: CTA ABDOMEN: soft & not tender w palpitation MUSCULOSKELETAL: no cyanosis, no swelling INTEGUMENT: no generalized pallor NEUROLOGICAL: cranial nerve function from 2-12 intact intact, follows commands, speech not dysarthric LABORATORY DATA: Please see below. IMAGING: [facility] NAME: RANDEE RICK DATE OF : 1945 BUSINESS NUMBER: [id number] AGE: 74 SEX: M REPORT #: [id number] ROOM: ED INP TECHNOLOGIST: GOYO DOCTOR: LEON GÓMEZ MD Ordered for Date&Time: 01/28/20 1325 cc: [~ rep ct ivnm] Service Date&Time: 01/28/20 1504 This report is in Signed status. Interpretation performed by [facility]. Thank you for having your radiology procedures performed at [facility] RADIOLOGY REPORT Date&Time printed: [~ rep prt dt last] [~ rep prt tm last] Page 2 of 2 [place] [id number] RADIOLOGY REPORT This report is in Signed status. Interpretation performed by [facility]. Thank you for having your radiology procedures performed at [facility] RADIOLOGY REPORT Date&Time printed: [~ rep prt dt last] [~ rep prt tm last] Page 1 of 1 THIS REPORT CONTAINS FINDINGS THAT MAY BE CRITICAL TO PATIENT CARE. The findings were verbally communicated via telephone conference with Dr. Fay at 4:46 PM EDT on 01/28/2020. The findings were acknowledged and understood. Electronically signed by: Chris Marie On 01/28/2020 16:46:41 PM DD: CHRIS MARIE MD 01/28/20 1504 DT: ZORAN 01/28/20 1646 DS: FRANCISCO J 01/28/20 1646 ADDENDUM REPORT 2 There is generalized nonspecific fullness of the pituitary gland with T1 hyperintensity, though overall limited evaluation due to examination slice thickness. Recommend further evaluation with nonemergent MRI brain using pituitary mass protocol to exclude possibility of pituitary lesion. Electronically signed by: Chris Marie On 01/28/2020 16:32:59 PM DD: CHRIS MARIE MD 01/28/20 1504 DT: ZORAN 01/28/20 1632 DS: FRANCISCO J 01/28/20 1632 ADDENDUM REPORT 1 The final sentence of the brain section of the findings stating "no restricted diffusion to suggest acute infarct" was dictated in error. Electronically signed by: Chris Marie On 01/28/2020 16:30:29 PM DD: CHRIS MARIE MD 01/28/20 1504 DT: ZORAN 01/28/20 1630 DS: FRANCISCO J 01/28/20 1630 PROCEDURE INFORMATION: Exam: MR Head Without Contrast Exam date and time: 01/28/2020 3:04 PM Age: 74 years old Clinical indication: Speech disturbance; Aphasia after reaction to chemo medication; Additional info: CVA TECHNIQUE: Imaging protocol: MR of the head without contrast. COMPARISON: CT Head without contrast 01/28/2020 11:49 AM FINDINGS: Brain: Punctate focus of restricted diffusion at the junction of the left cerebral peduncle and left thalamus. Few scattered nonspecific T2/FLAIR hyperintensities of the periventricular and deep subcortical white matter, most likely secondary to chronic small vessel ischemic change. No intracranial hemorrhage or extra-axial fluid collection. No evidence of mass effect or midline shift. No restricted diffusion to suggest acute infarct. Ventricles: Mild prominence of the ventricles and sulci, likely attributed to parenchymal volume loss. Bones/joints: Unremarkable. Sinuses: Unremarkable. Mastoid air cells: No mastoid effusion. Orbits: Unremarkable. Soft tissues: Unremarkable. IMPRESSION: 1. Punctate focus of restricted diffusion at the junction of the left cerebral peduncle and left thalamus, concerning for tiny acute infarct. 2. Other chronic findings, as above. Electronically signed by: Chris Marie On 01/28/2020 16:29:53 PM DD: CHRIS MARIE MD 01/28/20 1504 DT: ZORAN 01/28/20 1629 DS: FRANCISCO J 01/28/20 1629 [~ rep ct labl] PROGNOSIS: fair ACTIVITY: [As tolerated]. DIET: Cardiac DISPOSITION: Home DISCHARGE INSTRUCTIONS: Follow-up with Dr Laguna DISCHARGE CONDITION: [Stable]. TIME SPENT ON DISCHARGE: Greater than 40 minutes. Vital Signs/I&Os Vital Signs Date Time Temp Pulse Resp B/P (MAP) Pulse Ox O2 Delivery O2 Flow Rate FiO2 01/29/20 09:04 70 134/66 01/29/20 06:00 97.7 18 94 Room Air I&O- Last 24 Hours up to 6 AM 01/29/20 06:00 Intake Total 1765 ml Output Total 0 ml Balance 1765 ml Laboratory Data Labs 24H Laboratory Tests 2 01/28/20 17:13: Lactic Acid Followup at 4 Hours 0.9 01/29/20 06:29: Nucleated Red Blood Cells % (auto) 0.0, Immature Platelet Fraction 9.2, Anion Gap 6L, Glomerular Filtration Rate 37.1L, Calcium Level 8.0L, Magnesium Level 1.8, Triglycerides Level 146, Total Cholesterol 95, LDL Cholesterol 31, Non-HDL Cholesterol (LDL + VLDL) 60, Total HDL Cholesterol 35L, Cholesterol/HDL Ratio 2.714 CBC/BMP Laboratory Tests 01/29/20 06:29 Microbiology Microbiology 01/28/20 Blood Culture, Received Pending 01/28/20 Blood Culture - Preliminary, Resulted No growth after 24 hours . All specim... Discharge Medications Scheduled Allopurinol (Allopurinol) 100 Mg Tablet, 300 MG PO DAILY, (Reported) Atorvastatin Calcium (Atorvastatin Calcium) 20 Mg Tablet, 40 MG PO DAILY@1800 Clopidogrel Bisulfate (Clopidogrel) 75 Mg Tablet, 75 MG PO DAILY Cyanocobalamin (Vitamin B-12) (B-12) 500 Mcg Tablet, 500 MCG PO QHS, (Reported) Ibrutinib (Imbruvica) 140 Mg Capsule, 2 CAP PO DAILY, (Reported) Metformin HCl (Metformin HCl ER) 500 Mg Tab.er.24h, 1,000 MG PO BID, (Reported) Metoprolol Succinate (Metoprolol Succinate) 25 Mg Tab.er.24h, 25 MG PO DAILY, (Reported) Omeprazole (Omeprazole) 40 Mg Capsule.dr, 40 MG PO QHS, (Reported) Scheduled PRN Aspirin/Acetaminophen/Caffeine (Excedrin Migraine Caplet) 1 Each Tablet, 2 TAB PO BID PRN for PAIN, (Reported) Allergies Coded Allergies: levofloxacin (Verified Adverse Reaction, Mild, VOMITTING, 12/28/19) LEONARDO COBURN DO Jan 29, 2020 14:12
--- NOTE | 2020-01-29 14:50 | REPVR ---
PROCEDURE INFORMATION: Exam: US Duplex Bilateral Extracranial Arteries Exam date and time: 01/29/2020 2:15 PM Age: 74 years old Clinical indication: Other: Stroke TECHNIQUE: Imaging protocol: Real-time Duplex ultrasound scan of the bilateral carotid and vertebral arteries combining michele scale, color Doppler and spectral waveform analysis. Bilateral exam. COMPARISON: CT Head without contrast 01/28/2020 11:49 AM FINDINGS: Right common carotid artery: 118 cm/s. No occlusion or significant stenosis. Waveforms are normal. Mild calcified atherosclerotic plaque at the carotid bifurcation. Right internal carotid artery: 98 cm/s. No occlusion or significant stenosis. Waveforms are normal. Right ICA/CCA ratio: 0.8 Right external carotid artery: 195 cm/s. 50-69% stenosis in the origin. Right vertebral artery: Unremarkable. Antegrade flow. Left common carotid artery: 124 cm/s.No occlusion or significant stenosis. Waveforms are normal. Mild calcified atherosclerotic plaque at the carotid bifurcation. Left internal carotid artery: 124 cm/s .No occlusion or significant stenosis. Waveforms are normal. Left ICA/CCA ratio: 1.0 Left external carotid artery: 279 cm/s. 69-90% stenosis in the origin. Left vertebral artery: Unremarkable. Antegrade flow. IMPRESSION: Less than 50 % stenosis is noted in bilateral proximal ICA . REFERENCES: SRU CRITERIA. The degree of internal carotid artery stenosis is based on criteria defined by the Society of Radiologists in Ultrasound (SRU). Normal is no stenosis. Mild is less than 50% stenosis. Moderate is 50-69% stenosis. Severe is greater than 69% stenosis to near occlusion. Near occlusion is a markedly narrowed lumen. Total occlusion is no detectable patent lumen. Electronically signed by: Gutierrez Templeton On 01/29/2020 14:50:29 PM
--- NOTE | 2020-02-02 07:26 | ECHO ---
DATE OF PROCEDURE: 01/29/2020 Gender: Male Height: 173 cm Weight: 81 kg REFERRING PHYSICIAN: Jose Gee DO INDICATION: Cerebrovascular accident (CVA). MEASUREMENTS: IVS 1.3 LV 4.6 LVPW 1.1 LA 4.0 Aorta 3.4 RV 2.9 Mitral E wave velocity is 72; A wave 102 E prime septal 7.1 E prime lateral 8.9 FINDINGS: This study is of acceptable technical quality, patient is in sinus rhythm. Left ventricle is normal size. Mild left ventricular hypertrophy is present. Overall, low normal systolic function with estimated ejection fraction (EF) approximately 55%. Right ventricle does not appear dilated and is normally contractile. Left atrium is mildly enlarged. Right atrium appears grossly normal. Aortic valve is tricuspid. It is prominently sclerotic but I do not appreciate any distinct restriction of mobility based on the 2D imaging. Mitral and tricuspid valves appear normal. Pulmonic valve was poorly visualized. No pericardial effusion is noted. Inferior vena cava was poorly seen. Aortic root and aortic arch appeared normal. Doppler interrogation of aortic valve reveals mild insufficiency and no significant stenosis (peak gradient was 15 mmHg). There is trace mitral insufficiency and trace tricuspid insufficiency. Calculated pulmonary artery pressure is in the 30s assuming normal central venous pressure corresponding to borderline or mild pulmonary hypertension. Mitral inflow pattern and tissue Doppler imaging on mitral annulus revealed grade 1 diastolic dysfunction. Injection of agitated saline through peripheral vein indicates no shunt across atrial or ventricular septum ("negative bubble study"). CONCLUSIONS: 1. Study is of acceptable technical quality; patient is in sinus rhythm. 2. Normal left ventricular (LV) size with mild left ventricular hypertrophy (LVH), grossly preserved LV systolic function and grade 1 diastolic dysfunction. 3. Aortic sclerosis with trivial stenosis and mild insufficiency. 4. Trace mitral and tricuspid insufficiency. 5. Unable to estimated central venous pressure but likely normal or mildly elevated pulmonary artery pressure. 6. Negative "bubble study." [facility]
--- NOTE | 2020-02-11 10:51 | CR ---
DATE OF CONSULTATION: 01/29/2020 REFERRING PHYSICIAN: Jose Gee DO REASON FOR CONSULTATION: Possible stroke. HISTORY OF PRESENT ILLNESS: Monroe Camargo is a 74-year-old man with history of chronic lymphocytic leukemia (CLL) with marginal zone stage IV non-Hodgkins lymphoma who presented to [facility] with chills, freezing cold, and altered mental status while getting infusion of rituximab. Patient states that he started taking ibrutinib a week ago and had daily headaches which were the worst headaches he ever had with nausea and vomiting. Ibrutinib was discontinued. Patient was having first dose of rituximab 11 oclock in the morning at infusion center. He suddenly developed chills and freezing cold like sensation and does not remember anything after that. He woke up in the emergency department. According to emergency room (ER) doctor and admitting doctor, patient had weakness of his legs, but patient states that he did not even know any problems other than described above. He did not notice any numbness or weakness in the legs, or at least was not aware of it. He states that he feels back to normal and feels ready to go home today. He denies any trouble with his speech, numbness or weakness of arms and legs, double vision, imbalance. He denies dysphagia, dysarthria, diplopia, urinary incontinence. He had severe headaches for the last 1 week due to reaction to another medication as described above. He has off and on neck and back pain. PAST MEDICAL HISTORY: Chronic lymphocytic leukemia and non-Hodgkins lymphoma, marginal zone stage IV, psoriasis, metabolic syndrome, gout, dyslipidemia, diabetes, hypertension. HOME MEDICATIONS: - rituximab infusion which was being done at the time of his symptoms - allopurinol - aspirin - vitamin B12 500 mg by mouth daily - Ibrutinib, which was discontinued, 280 mg by mouth daily - lovastatin 20 mg by mouth daily - metformin 1000 mg by mouth twice a day - metoprolol extended release 25 mg by mouth daily - omeprazole 40 mg by mouth daily - Excedrin as needed ALLERGIES: LEVOFLOXACIN. SOCIAL HISTORY: He denies smoking, alcohol, or illicit drugs. FAMILY HISTORY: Father had Lewy body dementia. Sister with diabetes and coronary artery disease. REVIEW OF SYSTEMS: All systems were reviewed and found to be noncontributory except as mentioned in history of present illness. PHYSICAL EXAMINATION: Temperature 97.7, pulse 70, respiratory rate 18, blood pressure 134/56, 94% saturation on room air. Heart: Regular rate and rhythm. Lungs: Clear to auscultation. Abdomen: Soft, nontender, nondistended. No pedal edema. No musculoskeletal abnormalities. No rash. No signs of meningeal irritation. Patient is awake, alert, oriented to place, person, and time. Normal speech, comprehension, and repetition. Extraocular muscles are intact. No facial weakness. Tongue and uvula are midline. Visual romero are full to confrontation. No nystagmus. 5/5 strength in all four extremities. Deep tendon reflexes are 1+ throughout. Normal sensation throughout. No dysmetria, tremor, rigidity, or spasticity. Gait is normal. DIAGNOSTIC STUDIES: MRI scan of brain was reviewed and showed a small lacunar acute ischemic stroke affecting left internal capsule and barely touches midbrain on left side. He also has mild small vessel ischemic disease of brain. MRA brain was reportedly unremarkable. ASSESSMENT: 1. Small lacunar left internal capsule stroke barely touching left side of midbrain. 2. Reaction to rituximab causing chills, freezing cold, and slight alteration of mentation. These symptoms would likely not be caused by small acute ischemic stroke as these symptoms are bilateral as well. PLAN: 1. Echocardiogram and carotid ultrasound. 2. Aspirin 81 mg by mouth daily and continue lovastatin 20 mg by mouth daily. His total cholesterol was 95 with low-density lipoprotein (LDL) 31 and high- density lipoprotein (HDL) 35. 3. Continue metoprolol extended release 25 mg by mouth daily and metformin 1000 mg by mouth twice a day. 4. Follow with our office in 2 weeks after hospital discharge. OPAL
== END 2020-01-29 14:58 | disposition home or self-care (01) ==
LOC: M ED 11:36 → M ED INP 11:37 → M MSPAV 17:40
PROVIDERS: ADMIT Internal Medicine; ATTEND Internal Medicine
DX: I67.89 Other cerebrovascular disease (principal); R41.82 Altered mental status, unspecified; C88.4 Extranodal marginal zone B-cell lymphoma of mucosa-associated lymphoid tissue [MALT-lymphoma]; E11.9 Type 2 diabetes mellitus without complications; R20.2 Paresthesia of skin; I10 Essential (primary) hypertension; L40.8 Other psoriasis; E88.81 Metabolic syndrome and other insulin resistance; I25.10 Atherosclerotic heart disease of native coronary artery without angina pectoris; E78.2 Mixed hyperlipidemia; M10.9 Gout, unspecified; Z79.84 Long term (current) use of oral hypoglycemic drugs; Z79.899 Other long term (current) drug therapy; Z88.1 Allergy status to other antibiotic agents; Z98.61 Coronary angioplasty status; Z92.3 Personal history of irradiation; Z85.46 Personal history of malignant neoplasm of prostate
CPT/HCPCS: 36415; 70450; 70544; 70551; 71045; 80047; 80053; 80061; 81001; 82024; 82140; 82550; 82553; 82784; 82803; 83605; 83735; 83930; 84439; 84443; 84484; 85025; 85027; 85049; 85055; 87040; 90682; 93005; 93041; 93306; 93880; 96360; 96361; 96366; 96367; 96375; 96413; 99285; G0008; G0378; G0463; J2175; J2930; J9312

== ENCOUNTER → 2020-02-02 | Outpatient (CLI) | payer MEDICARE, BC ==
[~2020-02-02] MED LIST changes: +ATOR1TAB21 PO; +METF-838 PO; +PROHANCE 279.3MG/ML 5ML VIAL As Ordered ONE; +TRAM50TA2 PO
--- NOTE | 2020-02-02 10:17 | REPVR ---
PROCEDURE INFORMATION: Exam: MR Head Without and With Contrast, Sella Exam date and time: 02/02/2020 8:15 AM Age: 74 years old Clinical indication: Pain; Headache not specified; Patient HX: Noncontrast mri ? pituitary lesion; Additional info: Headaches, possible lymphoma involvement of RN ANTE PARTUM TECHNIQUE: Imaging protocol: MR of the head without and with intravenous contrast. Exam focused on the sella. Contrast material: PROHANCE; Contrast volume: 7 ml; Contrast route: INTRAVENOUS (IV); COMPARISON: MRI-Brain without Contrast 01/28/2020 2:31 PM FINDINGS: Artifact projects over the left orbit and left face, limiting evaluation. Brain: There is no extra-axial collection or intra-axial mass. Moderate diffuse volume loss is within the range of normal for patient age. There are foci of increased T2 and FLAIR signal within the periventricular and subcortical white matter, nonspecific but typically small-vessel ischemia in this age group. There is no diffusion restriction. Ventricles: Unremarkable. No Ventriculomegaly. Sella: There is a well-circumscribed 14 x 11 x 13 mm heterogeneous sellar mass to the right of midline, compatible with adenoma. The pituitary stock is at the upper limits of normal in thickness. Bones/joints: Unremarkable. IMPRESSION: 1. Findings compatible with pituitary adenoma. 2. Chronic changes. Electronically signed by: Lilibeth Palencia On 02/02/2020 10:17:23 AM
== END ==
LOC: M RAD 07:22
PROVIDERS: ATTEND Specialist
DX: R51 Headache (principal); Z86.39 Personal history of other endocrine, nutritional and metabolic disease
CPT/HCPCS: 70553; A9576